=== PATIENT | male | born 1935 | race Caucasian/White ===

== ENCOUNTER 2017-03-23 20:06 | Inpatient (IN) ==
[2017-03-23] MEDS ORDERED: D50W SYRINGE IV ONE (20:18)
[2017-03-23] MEDS ORDERED: NS 1,000 ML IV ONE (20:19)
[2017-03-23 20:26] LABS: MANUAL DIFF NEEDED? NO
[2017-03-23 20:35] LABS: BASO% 0.1 % (0.0-0.8); EOS# 0.05 X1000 (0.0-0.7); EOS% 0.6 % (0.0-10.0); HEMATOCRIT 39.5 % (42.0-52.0); HEMOGLOBIN 13.2 g/dL (14.0-18.0); IMM GRAN# 0.02 X1000 (0.0-0.04); IMM GRAN% 0.2 % (0.0-0.5); LYMPH# 0.76 X1000 (1.2-3.4); LYMPH% 9.4 % (20.5-51.1); MCH 29.2 PG (27-31); MCHC 33.4 g/dL (33-37); MCV 87.4 FL (81-99); MONO# 0.94 X1000 (0.11-0.59); MONO% 11.6 % (1.7-9.3); MPV 10.8 FL (7.4-10.4); NEUT% 78.1 % (42.2-75.2); PLT 139 X1000 (130-400); RBC 4.52 XMIL (4.7-6.1)
--- NOTE | 2017-03-23 20:35 | PROVIDER DOCUMENTATION ---
HPI-General Adult - General Chief Complaint: Return/Recheck Stated Complaint: return Time Seen by Provider: 03/23/17 20:18 Source: patient Allergies/Adverse Reactions: Patient Allergies Allergy/AdvReac Type Severity Reaction Status Date / Time Penicillins Allergy ANAPHYLAXIS Verified 03/23/17 09:11 aspirin AdvReac NAUSEA Verified 03/23/17 09:11 Home Medications: Home Medication List Medication Instructions Recorded Confirmed Last Taken Type Furosemide [Lasix] 40 mg PO DAILY 06/22/15 03/09/16 03/08/16 History Glipizide [Glipizide ER] 15 mg PO BID 06/22/15 03/09/16 03/08/16 History Lorazepam [Ativan] 1 mg PO BID PRN 06/22/15 03/09/16 03/07/16 History Omeprazole 40 mg DAILY 06/22/15 03/09/16 03/08/16 History Potassium Chloride E.r. [Klor-Con] 10 meq DAILY 06/22/15 03/09/16 03/08/16 History Digoxin 250 mcg PO DAILY 12/20/15 03/09/16 03/08/16 History Trazodone [Desyrel] 225 mg PO QHS 12/20/15 03/09/16 03/08/16 History SIMVAstatin [Zocor] 40 mg PO QHS 03/08/16 03/09/16 03/08/16 History - History of Present Illness -Gen Adult Nature of Presenting Problems: Pt. is 81 yom that presents with c/o AMS with low blood sugar by EMS. Pt. was seen earlier today for the same and was discharged home. Pt. reports he takes glipizide for his DM type II and no other DM medications. Location of Pain/Injury: reports: none. denies: head, face, mouth, neck, chest , upper extremity, hand(s), abdomen, back, pelvis, genitalia, lower extremity, feet, upper body, lower body, generalized, other Pain Radiation: reports: no radiation. denies: arm(s), back, buttocks, chest, epigastric, feet, groin, jaw, flank (L), legs (lower), LLQ, LUQ, neck, periumbilical, flank (R), RLQ, RUQ, shoulder(s), scapula, scrotal, sternal notch , suprapubic, legs (upper), urethral, vaginal, other Quality of Pain: reports: none. denies: aching, burning, cramping, dull, fullness, indigestion, pressure, sharp, stabbing, tearing, throbbing, tightness Severity: denies: mild, moderate, severe Onset/Duration: reports: unsure Timing: reports: still present. denies: improving, gone now, resolved prior to arrival, intermittent, constant, changing over time, getting worse Context/Activities at Onset: reports: none. denies: recent emotional stress, recent physical stress, recent trauma history, possible bad food, cold exposure , out of country travel Modifying Factors: improves with: nothing Associated Symptoms: reports: other (AMS). denies: denies symptoms, anxiety, arm pain, back/neck pain, chest pain, constipation, cough, diaphoresis, diarrhea , dizziness, EENT symptoms, fatigue, fever/chills, genitourinary problems, headaches, heartburn, joint pain, loss of appetite, malaise, muscle aches, sinus congestion/drainage, nausea, rash, seizure, shortness of breath, sensory/ motor loss, pain with inspiration, swelling/mass in abdomen, syncope, vomiting, weakness, trouble walking Similar Symptoms Previously?: Yes Recently seen or treated by another doctor?: Yes Review of Systems - Adult - REVIEW OF SYSTEMS - ADULT Constitutional: reports: see HPI. denies: chills, fever, fatique Eyes: reports: see HPI. denies: blurred vision, double vision Ears, Nose, Mouth & Throat: reports: see HPI. denies: ear pain, sinus problem, mouth/dental pain, throat swelling Cardiovascular: reports: see HPI. denies: chest pain, orthopnea, palpitations, syncope Respiratory: reports: see HPI. denies: cough, dyspnea on exertion, pleurisy, shortness of breath, wheezing Gastrointestinal: reports: see HPI. denies: abdominal pain, hematemesis, diarrhea, nausea, vomiting Genitourinary: reports: see HPI. denies: dysuria, discharge, hematuria, hesitency, urgency Musculoskeletal: reports: see HPI. denies: bone pain, joint pain, muscle aches , neck pain Integumentary: reports: see HPI. denies: hives, itching, rash, skin thickening Neurological: reports: see HPI, other (AMS). denies: ataxia, headache/migraines , numbness, seizure, tremors Psychiatric: reports: see HPI. denies: anxiety, depression, emotional problems , insomnia, panic attacks, suicidal thoughts Endocrine: reports: see HPI. denies: excessive sweating, goiter, increased hunger, polyuria Past History - Adult - PAST MEDICAL HISTORY-ADULT Review of Records: reports: Old Records Reviewed, Nursing Assessment Review, Medications Reviewed, Social history reviewed & non-contributory. Major Childhood Illnesses: reports: denies history Cardiovascular: reports: cardiac disease, A-Fib, arrhythmia Respiratory: reports: denies history Gastrointestinal: reports: cancer (esophageal) Endocrine/Immune: reports: Diabetes - PRIOR SURGERIES/PROCEDURES Surgical/Procedure History: reports: appendectomy, CABG, pacemaker, tonsillectomy, other (thorocotomy) - IMMUNIZATION STATUS Childhood Immunizations: See Nurse Assessment Flu Vaccine: See Nurse Assessment - FAMILY HISTORY Family History: reviewed, not pertinent - SOCIAL HISTORY Smoking: cigarettes, greater than 1 pack/day Provider spent 3-5 mins advising pt. on dangers of tobacco.: Discussed the need to stop smoking. Physical Exam-General - PHYSICAL EXAM-ADULT Initial Vital Signs Reviewed: Yes - CONSTITUTIONAL General Appearance: alert, mild distress, thin, lethargic, slow to respond. negative: obese, anxious, obtunded, combative - EYES Eyes: PERRL/EOMI, pink conjunctivae. negative: conjuctival exudate, scleral icterus, subconjunctival hemorrhage - HEAD, EARS, NOSE, MOUTH & THROAT HENMT: normocephalic/atraumatic, moist mucous membranes. negative: angioedema, frontal tenderness, maxillary tenderness - NECK Neck: non-tender, full range of motion, supple, normal inspection. negative: lymphadenopathy, trachial deviation, thyromegaly - RESPIRATORY Respiratory: lungs clear, normal breath sounds. negative: crackles, rales, rhonchi, stridor, wheezing - CARDIOVASCULAR Cardiovascular: normal peripheral pulses, regular rate, rhythm, no edema, no JVD , no murmur. negative: extra beats, friction rub, irregularly irregular - GASTROINTESTINAL (ABDOMEN) Abdominal Exam: normal bowel sounds, non tender, soft. negative: distended, guarding, rigid, rebound, tenderness, hernia, mass - LYMPHATIC Lymphatic: no adenopathy. negative: axilla node tender, cervical node tenderness - MUSCULOSKELETAL Back Exam: normal inspection, no CVA tenderness, no vertebral tenderness. negative: ecchymosis, swelling, vertebral tenderness Extremity: normal range of motion, non-tender, normal inspection. negative: deformity, erythema, inflammation, swelling, tenderness Peripheral Pulses: radial (R): 2+, radial (L): 2+ - SKIN Integumentary: normal turgor, warm/dry, pallor. negative: cyanosis, diaphoresis , ecchymosis, erythema, jaundice, mottled, petechiae, purpura, rash, swelling, tenderness - NEUROLOGIC Neurologic: grossly normal, no motor/sensory deficits. negative: aphasia, facial droop, focal weakness, motor weakness, sensory deficit - PSYCHIATRIC Psych/Mental Status: normal mood/affect, normal thought content, normal thought process, oriented x 3. negative: anxious, paranoid, tearful Progress - PLAN OF CARE/RESULTS Progress/Plan/Lab Results: Vital Signs - 8 hr 03/23/17 20:08 Temperature 98 F Pulse Rate 88 Respiratory Rate 18 Blood Pressure 148/78 O2 Sat by Pulse Oximetry 98 Orders Category Date Time Status Saline Loc NOW Care 03/23/17 20:18 Active CBC WITH ELECTRONIC DIFF [HEME] Stat Lab 03/23/17 20:15 Results COMPREHENSIVE METABOLIC PANEL [CHEM] Stat Lab 03/23/17 20:[address] [URINALYSIS] Stat Lab 03/23/17 20:19 Ordered 0.9% Sodium Chloride Inj [Ns] 1,000 ml Med 03/23/17 20:19 Active IV 125 mls/hr Dextrose 50% Syringe [D50w Syringe] Med 03/23/17 20:18 Discontinued 50 ml IV NOW ONE Discussed results and plan of care with patient. Patient agrees with plan and verbalizes understanding. Result Diagrams: 03/23/17 20:15 - XRAY 1 XRAY Study: Chest XRAY Interpretation: Stable chest ([place]) - CONSULTS/PCP/HOSPITALIST Notification #1 *Consult/PCP/Hospitalist*: Dr. Joseph Time Discussed: 20:30 Reason/Comments: Admission Consult Disposition: Admit Departure - Departure Date of Disposition Decision: 03/23/17 Time of Disposition Decision: 20:31 DIAGNOSIS: Hypoglycemia Disposition: ADMITTED INPATIENT 09 Certified Medical Emergency: Emergent Condition: Stable - Critical Care Note This patient required my direct & personal management of CC.: No Attestation - Physician/ JUDIT Attestation Patient care was provided by Advanced Practice Provider:: Yes Advanced Practice Provider:: Conrado [place] (The physician is on site and available for consultation but did not have face to face contact with the patient.) Advanced Practice Provider documentation review:: The Mid-level provider documentation, treatment plan and medical decision making was reviewed by the physician who agrees with all treatment and medical decision making by the MLP.
[2017-03-23] MEDS ORDERED: D50W SYRINGE IV PRN (20:38)
[2017-03-23 20:52] LABS: AGAP 10; ALBUMIN 3.6 g/dL (3.5-5.0); ALKALINE PHOSPHATASE 42 U/L (32-122); BUN 30 mg/dL (8-22); CHLORIDE 106 mmol/L (98-107); COSMO 284; GOT 63 U/L (10-34); GPT 20 U/L (10-44); POTASSIUM 3.2 mmol/L (3.5-5.1); SODIUM 141 mmol/L (136-145); TCO2 25 mmol/L (25-35); TOTAL PROTEIN 6.4 g/dL (6.3-8.3)
[2017-03-24 08:52] LABS: AGAP 7; BUN 28 mg/dL (8-22); CALCIUM 8.7 mg/dL (8.8-10.2); CHLORIDE 108 mmol/L (98-107); COSMO 296; POTASSIUM 3.6 mmol/L (3.5-5.1); SODIUM 143 mmol/L (136-145); TCO2 28 mmol/L (25-35)
[2017-03-24] MEDS ORDERED: ATIVAN PO PRN (09:52)
[2017-03-24] MEDS ORDERED: NORCO-10 PO PRN (09:52)
[2017-03-24 10:15] LABS: HEMOGLOBIN A1C 5.6 % (4.8-6.0)
[2017-03-24] MEDS: LIORESAL PO SCH (12:22)
[2017-03-24] MEDS: REGLAN PO SCH (12:22)
[2017-03-24] MEDS: MIRALAX PO SCH (12:22)
[2017-03-24] MEDS: LASIX PO SCH (12:22)
[2017-03-24] MEDS: KLOR-CON PO SCH (12:22)
[2017-03-24] MEDS: PRILOSEC PO SCH (13:53)
--- NOTE | 2017-03-24 14:07 | HISTORY AND PHYSICAL ---
PRIMARY CARE PHYSICIAN: Dr. Beckham. CHIEF COMPLAINT: Of hypoglycemia and altered mental status. HISTORY OF PRESENTING ILLNESS: This is an 81-year-old male who presents to [facility] ER with complaints of hypoglycemia and altered mental status. He was seen earlier on 03/23/2017 in the emergency room for the same symptoms. He was treated with D5W and an amp of D50. His blood sugar came up. He was instructed not to take any more of his glipizide and he was discharged home at that time. States that he had gone home and was feeling better and all of a sudden he fell to his knee and he asked his son to dial 911 and he was brought back to the emergency room. When he arrived his laboratory data showed a glucose of 45 and a potassium of 3.2. He was given an amp of D50 IV and his blood sugar came up to 161 approximately 30 minutes later. He had some mild confusion related to the hypoglycemia so he was admitted for further evaluation and treatment. PAST MEDICAL HISTORY: Diabetes type 2, coronary artery disease, hypertension and atrial fibrillation. PAST SURGICAL HISTORY: CABG, tonsillectomy, pacemaker placement and a thoracotomy. FAMILY HISTORY: Noncontributory. SOCIAL HISTORY: He currently lives alone. Smokes 5-6 cigarettes a day and denied any alcohol or illicit drug use. ALLERGIES: Penicillin and aspirin. HOME MEDICATIONS: We will hold his glipizide 15 mg p.o. b.i.d. Will continue baclofen 10 mg p.o. daily, Lasix 40 mg p.o. daily, Hodge 10 1 p.o. q.4 hours p.r.n., Ativan 1 mg p.o. b.i.d. p.r.n., Reglan 5 mg p.o. daily, omeprazole 40 mg p.o. daily, MiraLAX 17 g p.o. daily, potassium 10 mEq p.o. daily and Zocor 40 mg p.o. at bedtime. LABORATORY DATA: Showed a white blood cell count of 8.08, hemoglobin of 13.2, hematocrit 39.5, platelets 139,000. Sodium 141, potassium 3.2, chloride 106, CO2 25, BUN of 30, creatinine of 0.9, glucose was 45. This a.m. his potassium was up to 3.6, glucose was at 192. CT of the head during his presentation to the ER showed no hemorrhage and atrophy with chronic ischemic changes and a chest x-ray earlier yesterday morning during that presentation also that showed a stable chest. REVIEW OF SYSTEMS: He denied any fever, chills, blurred vision. He had a little dizziness. Denied any chest pain, coughing, shortness of breath, abdominal pain, constipation, diarrhea, burning or hurting with urination. PHYSICAL EXAMINATION: VITAL SIGNS: On arrival showed a temperature of 98 degrees, pulse of 88, respirations 18, blood pressure 148/78, saturating 98% on room air. GENERAL: This is an 81-year-old male who is currently lying in the bed and answers questions appropriately. HEENT: Normocephalic and atraumatic. Pupils are equal, round, reactive to light. The extraocular movements are intact. Oropharynx and nares are clear. NECK: Supple. LUNGS: Clear to auscultation bilaterally with equal lung expansion and chest wall movement. HEART: With regular rate and rhythm. No murmurs, rubs, or gallops. ABDOMEN: Soft, nontender, nondistended. Bowel sounds are present x4 quadrants. EXTREMITIES: No clubbing, cyanosis, or edema. NEUROLOGICAL: The cranial nerves 2-12 are grossly intact. ASSESSMENT: 1. Diabetes type 2 with hypoglycemia secondary to hypoglycemic agent. 2. Hypokalemia. 3. Hypertension. 4. Tobacco abuse. PLAN: He was admitted, placed on a diabetic diet. Pattern blood sugars. He was given normal saline at 125 mL an hour x1 L, D50 IV p.r.n. hypoglycemia. We are going to hold his glipizide, continue his home medications, going to check a hemoglobin A1c. Did discuss smoking cessation with this patient and he is currently a full code. Dictated by KOSTA Mazariegos for Tavo Dominguez MD cc: MD Tavo Driscoll MD
[2017-03-24] MEDS ORDERED: ZOCOR PO SCH (21:00)
[2017-03-25] MEDS: PRILOSEC PO SCH (06:03)
[2017-03-25 06:50] LABS: MANUAL DIFF NEEDED? NO
[2017-03-25 06:56] LABS: BASO% 0.1 % (0.0-0.8); EOS# 0.19 X1000 (0.0-0.7); EOS% 2.8 % (0.0-10.0); HEMATOCRIT 39.9 % (42.0-52.0); HEMOGLOBIN 12.9 g/dL (14.0-18.0); IMM GRAN# 0.01 X1000 (0.0-0.04); IMM GRAN% 0.1 % (0.0-0.5); LYMPH# 1.04 X1000 (1.2-3.4); LYMPH% 15.3 % (20.5-51.1); MCH 28.6 PG (27-31); MCHC 32.3 g/dL (33-37); MCV 88.5 FL (81-99); MONO% 11.7 % (1.7-9.3); PLT 133 X1000 (130-400); RBC 4.51 XMIL (4.7-6.1)
[2017-03-25 07:57] LABS: AGAP 9; BUN 21 mg/dL (8-22); CALCIUM 9.1 mg/dL (8.8-10.2); CHLORIDE 102 mmol/L (98-107); COSMO 283; POTASSIUM 3.6 mmol/L (3.5-5.1); SODIUM 138 mmol/L (136-145); TCO2 27 mmol/L (25-35)
[2017-03-25] MEDS: LIORESAL PO SCH (10:11)
[2017-03-25] MEDS: REGLAN PO SCH (10:11)
[2017-03-25] MEDS: LASIX PO SCH (10:11)
[2017-03-25] MEDS: MIRALAX PO SCH (10:11)
[2017-03-25] MEDS: KLOR-CON PO SCH (10:11)
[2017-03-25 15:12] VITALS: BP 130/82
--- NOTE | 2017-03-29 18:37 | DISCHARGE SUMMARY ---
ADMISSION DATE: 03/23/2017 DISCHARGE DATE: 03/25/2017 DISCHARGE DIAGNOSES: 1. Hyperglycemia, iatrogenic secondary to hypoglycemic agent. 2. Diabetes type 2. 3. Hypokalemia. 4. Hypertension. 5. Chronic tobacco abuse. CONSULTATION/PROCEDURE: None. BRIEF HOSPITAL COURSE: Patient is an 81-year-old male who presented to the emergency department as noted on HPI. Treated in usual fashion. Given IV glucose and D50 a few times. His glipizide was held. His blood sugars continued to improve. On discharge, patient had not taken his glipizide, but he was feeling much better. He was eating without any difficulty. He was asking to go home. DISPOSITION: The patient will be discharged home. Again, discussed to not take glipizide for the next several days at home and if he does start taking it, only take half the dose. He will follow up with his primary care in 1-2 weeks to recheck his blood sugar. He will check his blood sugars on a daily basis until that time. TIME SPENT: 35 minutes was spent in discharge planning and instructions. cc: Donald Stewart MD
== END 2017-03-25 16:44 | disposition home or self-care (01) ==
LOC: P.ED 20:06 → P.MEDSURG 20:57 → SUATTDRO 20:57 → P.MEDSURG 21:11
PROVIDERS: ADMIT Family Medicine; ATTEND Family Medicine

== ENCOUNTER 2017-04-09 17:32 | Observation (INO) ==
[2017-04-09 17:58] LABS: BE 3.9 mmoll (-3.0-3.0); BLOOD TYPE ARTERIAL; DRAW SITE R BRACHIAL; METHB 1.3 % (0.0-1.5); O2(CT) 18.4 mL/dL (15.0-23.0); PCO2(98.6) 42 mmHg (35-45); PO2(98.6) 81 mmHg (60-100); SAMPLE BLOOD; SAO2 97.3 % (95.0-100.0); THB 13.9 g/dL (11.5-17.4); pH(98.6) 7.44 (7.35-7.45)
[2017-04-09 18:03] LABS: ALLEN TEST NO; MODALITY ROOM AIR
--- NOTE | 2017-04-09 18:12 | EKG Report ---
Test Performed on : 04/09/2017 6:09:14 PM Test Reason : AMS Blood Pressure : / mmHG Vent. Rate : 086 BPM Atrial Rate : 153 BPM P-R Int : 000 ms QRS Dur : 090 ms QT Int : 378 ms P-R-T Axes : 000 061 -67 degrees QTc Int : 452 ms Atrial fibrillation. with premature ventricular or aberrantly conducted complexes. Voltage criteria for left ventricular hypertrophy Nonspecific ST and T wave abnormality Abnormal ECG When compared with ECG of 23-MAR-2017 09:07, Inverted T waves have replaced nonspecific T wave abnormality in Inferior leads Unconfirmed Result
[2017-04-09 18:14] LABS: MANUAL DIFF NEEDED? NO
[2017-04-09 18:17] LABS: BASO% 0.3 % (0.0-0.8); EOS# 0.15 X1000 (0.0-0.7); EOS% 2.4 % (0.0-10.0); HEMATOCRIT 40.1 % (42.0-52.0); HEMOGLOBIN 13.3 g/dL (14.0-18.0); IMM GRAN# 0.02 X1000 (0.0-0.04); IMM GRAN% 0.3 % (0.0-0.5); LYMPH# 1.55 X1000 (1.2-3.4); LYMPH% 24.8 % (20.5-51.1); MCHC 33.2 g/dL (33-37); MCV 87.6 FL (81-99); MONO# 0.73 X1000 (0.11-0.59); MONO% 11.7 % (1.7-9.3); MPV 10.5 FL (7.4-10.4); NEUT% 60.5 % (42.2-75.2); PLT 181 X1000 (130-400); RBC 4.58 XMIL (4.7-6.1)
--- NOTE | 2017-04-09 18:32 | Diag Imaging Result Doc PS360 ---
EXAM: HEAD W/O CONTRAST - 04/09/2017 HISTORY: AMS TECHNIQUE: Dose reduction protocol COMPARISON: 03/23/2017 FINDINGS: There are atrophic changes and mild chronic microvascular ischemic changes similar to the previous exam. There is no indication of recent infarct, although acute infarcts may not be immediately visible. There is no hemorrhage, mass effect, or midline shift identified. IMPRESSION: No visible acute process. No hemorrhage or mass effect. Electronically signed by Mathieu Aldana 04/09/2017 6:30 PM
[2017-04-09 18:34] LABS: INR 1.18 (0.86-1.15); PROTIME 15.3 Seconds (12.1-15.5)
[2017-04-09 18:35] LABS: PTT PL 35.3 Seconds (22.6-43.9)
--- NOTE | 2017-04-09 18:36 | Diag Imaging Result Doc PS360 ---
EXAM: CHEST-PORTABLE - 04/09/2017 HISTORY: AMS TECHNIQUE: Portable chest 6:33 PM COMPARISON: 03/23/2017 FINDINGS: There is stable mild cardiomegaly. There are sternal wires from previous surgery again seen. There are multiple surgical clips from esophagectomy with gastric pull-through procedure. The lungs appear essentially clear. There is no pleural effusion or pneumothorax identified. There are degenerative and apparent postsurgical changes noted at the right shoulder. IMPRESSION: Stable mild cardiomegaly. No evidence of acute disease. Electronically signed by Mtahieu Aldana 04/09/2017 6:34 PM
[2017-04-09 18:39] LABS: ALBUMIN 3.8 g/dL (3.5-5.0); CALCIUM 9.7 mg/dL (8.8-10.2); POTASSIUM 4.4 mmol/L (3.5-5.1); TOTAL BILIRUBIN 0.7 mg/dL (0.20-1.00)
[2017-04-09 18:51] LABS: URINE CULTURE PL NEEDED? NO
[2017-04-09] MEDS ORDERED: NS 1,000 ML IV PRN (18:55)
[2017-04-09 19:02] LABS: BILIRUBIN URINE NEGATIVE (NEGATIVE); BLOOD URINE NEGATIVE (NEGATIVE); CLARITY CLEAR (CLEAR); COLOR YELLOW; GLUCOSE URINE NEGATIVE (NEGATIVE); LEUKOCYTES URINE NEGATIVE (NEGATIVE); NITRITE URINE NEGATIVE (NEGATIVE); PROTEIN URINE NEGATIVE (NEGATIVE); SP GRAVITY URINE 1.005; UROBILINOGEN URINE NORMAL
[2017-04-09 19:04] LABS: UR AMPHETAMINES QUAL NONE DETECTED (NONE DETECT); UR BARBITUATES QUAL NONE DETECTED (NONE DETECT); UR BENZODIAZEPIN QUAL NONE DETECTED (NONE DETECT); UR CANNABINOIDS QUAL NONE DETECTED (NONE DETECT); UR COCAINE QUAL NONE DETECTED (NONE DETECT); UR MDMA QUAL NONE DETECTED (NONE DETECT); UR METHADONE QUAL NONE DETECTED (NONE DETECT); UR METHAMPHETAMINE QUAL NONE DETECTED (NONE DETECT); UR OPIATES QUAL PRESUMPTIVE POSITIVE (NONE DETECT); UR OXYCODONE QUAL NONE DETECTED (NONE DETECT); UR PCP QUAL NONE DETECTED (NONE DETECT); UR TCA QUAL NONE DETECTED (NONE DETECT)
[2017-04-09 19:12] LABS: URINE SOURCE CLEAN CATCH
[2017-04-09 19:13] LABS: URINE EPITHELIAL CELLS <10 /HPF (<10); URINE RBC <10 /HPF (<10); URINE WBC <10 /HPF (<10)
[2017-04-09] MEDS ORDERED: TYLENOL PO PRN (20:43)
[2017-04-09] MEDS ORDERED: NS 1,000 ML IV ONE (20:43)
[2017-04-09] MEDS ORDERED: ZOFRAN IV PRN (20:43)
--- NOTE | 2017-04-09 20:48 | PROVIDER DOCUMENTATION ---
This chart was entered by Reshma Yeh Scribe, acting as scribe for Mike Espana MD. HPI-Neurological Disorder - General Chief Complaint: Altered Mental Status Stated Complaint: AMS Time Seen by Provider: 04/09/17 18:57 Source: patient, RN notes reviewed Unable to obtain history due to:: altered Allergies/Adverse Reactions: Patient Allergies Allergy/AdvReac Type Severity Reaction Status Date / Time Penicillins Allergy ANAPHYLAXIS Verified 04/09/17 17:35 aspirin AdvReac NAUSEA Verified 04/09/17 17:35 Home Medications: Home Medication List Medication Instructions Recorded Confirmed Last Taken Type Furosemide [Lasix] 40 mg PO DAILY 06/22/15 04/09/17 03/08/16 History Lorazepam [Ativan] 1 mg PO BID PRN 06/22/15 04/09/17 03/07/16 History Omeprazole 40 mg PO DAILY 06/22/15 04/09/17 03/08/16 History Potassium Chloride E.r. [Klor-Con] 10 meq DAILY 06/22/15 04/09/17 03/08/16 History SIMVAstatin [Zocor] 40 mg PO QHS 03/08/16 04/09/17 03/08/16 History Baclofen 10 mg PO DAILY 03/23/17 04/09/17 Unknown History Hydrocodone/Acetaminophen [[place] 10 mg PO Q4H PRN PRN 03/23/17 04/09/17 Unknown History 10-325 Tablet] Metoclopramide HCl [Reglan] 5 mg PO DIRECTED 03/23/17 04/09/17 Unknown History Polyethylene Glycol 3350 17 gm PO DAILY 03/23/17 04/09/17 Unknown History Glipizide 15 mg PO BID 04/09/17 04/09/17 Unknown History Isosorbide Mononitrate E.r. [Imdur] 60 mg PO DAILY 04/09/17 04/09/17 Unknown History Lisinopril 5 mg PO DAILY 04/09/17 04/09/17 Unknown History Ondansetron Odt [Zofran Odt] 4 mg PO Q6H PRN 04/09/17 04/09/17 Unknown History Quetiapine [Seroquel] 25 mg PO QHS 04/09/17 04/09/17 Unknown History Sucralfate 1 gm PO 4XDAY 04/09/17 04/09/17 Unknown History Trazodone [Desyrel] 225 mg PO QHS 04/09/17 04/09/17 Unknown History Warfarin [Coumadin] 3 mg PO DAILY 04/09/17 04/09/17 Unknown History - History of Present Illness-Neuro Nature of Presenting Problem: 81 year old M presents to the ED with a cc of a fall. Per nursing note, son states that pt is more altered mentally than usual. Pt is a cancer pt and is on hospice. There is a contusion to left side of forehead and per nursing note pt son states that it may have happened last night. Severity: reports: moderate Onset/Duration: reports: this afternoon Timing: reports: still present Context: reports: other (more altered) Character of Altered Mental Status: reports: confused Any recent trauma/injury?: reports: other (unknown) Cognitive Baseline: alert but confused Gait Baseline: other (unknown) Review of Systems - Adult - REVIEW OF SYSTEMS - ADULT ROS:: unobtainable per condition (pt confused) Constitutional: reports: no symptoms reported Eyes: reports: no symptoms reported Ears, Nose, Mouth & Throat: reports: no symptoms reported Cardiovascular: reports: no symptoms reported Respiratory: reports: no symptoms reported Gastrointestinal: reports: no symptoms reported Genitourinary: reports: no symptoms reported Musculoskeletal: reports: no symptoms reported Integumentary: reports: no symptoms reported Neurological: reports: no symptoms reported Psychiatric: reports: no symptoms reported Endocrine: reports: no symptoms reported Hematologic/Lymphatic: reports: no symptoms reported Allergic/Immunologic: reports: no symptoms reported All Other Systems: Reviewed and Negative Past History - Adult - PAST MEDICAL HISTORY-ADULT Review of Records: reports: Nursing Assessment Review, Medications Reviewed Major Childhood Illnesses: reports: denies history Cardiovascular: reports: cardiac disease, A-Fib, arrhythmia Respiratory: reports: denies history Gastrointestinal: reports: cancer (esophageal) Endocrine/Immune: reports: Diabetes - PRIOR SURGERIES/PROCEDURES Surgical/Procedure History: reports: appendectomy, CABG, pacemaker, tonsillectomy, other (thorocotomy) - IMMUNIZATION STATUS Childhood Immunizations: See Nurse Assessment Flu Vaccine: See Nurse Assessment - FAMILY HISTORY Family History: reviewed, not pertinent - SOCIAL HISTORY Smoking: cigarettes Provider spent 3-5 mins advising pt. on dangers of tobacco.: Discussed manners to quit use, and f/u contacts for add'l counseling. Substance Use: none/never Alcohol Use Frequency: occasionally Physical Exam- Neurological - Physical Exam-Neuro Initial Vital Signs Reviewed: Yes General Appearance: alert, other (emaciated) Head Injury: contusions (left forehead), ecchymosis (left forehead) Respiratory: chest non-tender, lungs clear, normal breath sounds Cardiovascular: irregularly irregular Abdominal Exam: non tender, soft Integumentary: normal color, normal turgor, warm/dry Progress - PLAN OF CARE/RESULTS Progress/Plan/Lab Results: Vital Signs - 8 hr 04/09/17 17:32 04/09/17 19:08 Pulse Rate 79 133 H Respiratory Rate 19 18 Blood Pressure 119/74 157/92 O2 Sat by Pulse Oximetry 97 94 L Laboratory Results - last 24 hr 04/09/17 04/09/17 04/09/17 16:10 16:10 16:10 WBC RBC Hgb Hct MCV MCH MCHC RDW Std Deviation Plt Count MPV Immature Gran % (Auto) Neut % (Auto) Lymph % (Auto) [place] % (Auto) Eos % (Auto) Baso % (Auto) Immature Gran # (Auto) Neut # (Auto) Lymph # (Auto) [place] # (Auto) Eos # (Auto) Baso # (Auto) PT INR APTT (Factor Assay) Specimen Type Sample Site pH pCO2 pO2 HCO3 Base Excess Oxyhemoglobin ABG O2 Sat (Calculated) ABG O2 Saturation ABG Carboxyhemoglobin ABG Methemoglobin Saw Test A-a O2 Difference Total Hemoglobin Lactate Blood Gas Modality FiO2 % Sodium 135 L Potassium 4.4 Chloride 96 L Carbon Dioxide 29 Anion Gap 10 BUN 36 H Creatinine 1.4 H Estimated GFR/1.73 m2 49 BUN/Creatinine Ratio 26 Glucose 100 POC Glucose Calculated Osmolality 279 Calcium 9.7 Total Bilirubin 0.70 AST 18 ALT 10 Alkaline Phosphatase 64 Creatine Kinase 57 Troponin T 0.023 [id number] Pept Total Protein 7.0 Albumin 3.8 Globulin 3.0 Albumin/Globulin Ratio 1.0 Plasma Lactate 0.8 Urine Source Urine Color Urine Clarity Urine pH Ur Specific [place] Urine Protein Urine Ketones Urine Blood Urine Nitrite Urine Bilirubin Urine Urobilinogen Urine Microscopic RBC Urine WBC Urine Microscopic WBC Ur Epithelial Cells Urine Bacteria Urine Glucose Urine Opiates Screen Ur Oxycodone Screen Urine Methadone Screen Ur Barbituates Screen Ur Tricyclics Screen Ur Phencyclidine Scrn Ur Amphetamines Screen U Methamphetamines Scrn Urine MDMA Screen U Benzodiazepines Scrn Urine Cocaine Screen U Cannabinoids Screen Plasma/Serum Ethyl Alc 04/09/17 04/09/17 04/09/17 16:10 16:10 16:10 WBC 6.24 RBC 4.58 L Hgb 13.3 L Hct 40.1 L MCV 87.6 MCH 29.0 MCHC 33.2 RDW Std Deviation 14.6 H Plt Count 181 MPV 10.5 H Immature Gran % (Auto) 0.3 Neut % (Auto) 60.5 Lymph % (Auto) 24.8 [place] % (Auto) 11.7 H Eos % (Auto) 2.4 Baso % (Auto) 0.3 Immature Gran # (Auto) 0.02 Neut # (Auto) 3.77 Lymph # (Auto) 1.55 [place] # (Auto) 0.73 H Eos # (Auto) 0.15 Baso # (Auto) 0.02 PT 15.3 INR 1.18 H APTT (Factor Assay) 35.3 Specimen Type Sample Site pH pCO2 pO2 HCO3 Base Excess Oxyhemoglobin ABG O2 Sat (Calculated) ABG O2 Saturation ABG Carboxyhemoglobin ABG Methemoglobin Saw Test A-a O2 Difference Total Hemoglobin Lactate Blood Gas Modality FiO2 % Sodium Potassium Chloride Carbon Dioxide Anion Gap BUN Creatinine Estimated GFR/1.73 m2 BUN/Creatinine Ratio Glucose POC Glucose Calculated Osmolality Calcium Total Bilirubin AST ALT Alkaline Phosphatase Creatine Kinase Troponin T [id number] Pept Total Protein Albumin Globulin Albumin/Globulin Ratio Plasma Lactate Urine Source Urine Color Urine Clarity Urine pH Ur Specific [place] Urine Protein Urine Ketones Urine Blood Urine Nitrite Urine Bilirubin Urine Urobilinogen Urine Microscopic RBC Urine WBC Urine Microscopic WBC Ur Epithelial Cells Urine Bacteria Urine Glucose Urine Opiates Screen Ur Oxycodone Screen Urine Methadone Screen Ur Barbituates Screen Ur Tricyclics Screen Ur Phencyclidine Scrn Ur Amphetamines Screen U Methamphetamines Scrn Urine MDMA Screen U Benzodiazepines Scrn Urine Cocaine Screen U Cannabinoids Screen Plasma/Serum Ethyl Alc 04/09/17 04/09/17 04/09/17 16:10 17:30 18:34 WBC RBC Hgb Hct MCV MCH MCHC RDW Std Deviation Plt Count MPV Immature Gran % (Auto) Neut % (Auto) Lymph % (Auto) [place] % (Auto) Eos % (Auto) Baso % (Auto) Immature Gran # (Auto) Neut # (Auto) Lymph # (Auto) [place] # (Auto) Eos # (Auto) Baso # (Auto) PT INR APTT (Factor Assay) Specimen Type ARTERIAL Sample Site R BRACHIAL pH 7.44 pCO2 42 pO2 81 HCO3 27.9 H Base Excess 3.9 H Oxyhemoglobin 94.1 L ABG O2 Sat (Calculated) 18.4 ABG O2 Saturation 97.3 ABG Carboxyhemoglobin 2.00 ABG Methemoglobin 1.3 Saw Test NO A-a O2 Difference 16.0 Total Hemoglobin 13.9 Lactate 0.70 Blood Gas Modality ROOM AIR FiO2 % 21.0 Sodium Potassium Chloride Carbon Dioxide Anion Gap BUN Creatinine Estimated GFR/1.73 m2 BUN/Creatinine Ratio Glucose POC Glucose 96 D Calculated Osmolality Calcium Total Bilirubin AST ALT Alkaline Phosphatase Creatine Kinase Troponin T [id number]-Uytjtswblzw Pept 1415 H Total Protein Albumin Globulin Albumin/Globulin Ratio Plasma Lactate Urine Source Urine Color Urine Clarity Urine pH Ur Specific [place] Urine Protein Urine Ketones Urine Blood Urine Nitrite Urine Bilirubin Urine Urobilinogen Urine Microscopic RBC Urine WBC Urine Microscopic WBC Ur Epithelial Cells Urine Bacteria Urine Glucose Urine Opiates Screen Ur Oxycodone Screen Urine Methadone Screen Ur Barbituates Screen Ur Tricyclics Screen Ur Phencyclidine Scrn Ur Amphetamines Screen U Methamphetamines Scrn Urine MDMA Screen U Benzodiazepines Scrn Urine Cocaine Screen U Cannabinoids Screen Plasma/Serum Ethyl Alc 04/09/17 04/09/17 18:43 18:43 WBC RBC Hgb Hct MCV MCH MCHC RDW Std Deviation Plt Count MPV Immature Gran % (Auto) Neut % (Auto) Lymph % (Auto) [place] % (Auto) Eos % (Auto) Baso % (Auto) Immature Gran # (Auto) Neut # (Auto) Lymph # (Auto) [place] # (Auto) Eos # (Auto) Baso # (Auto) PT INR APTT (Factor Assay) Specimen Type Sample Site pH pCO2 pO2 HCO3 Base Excess Oxyhemoglobin ABG O2 Sat (Calculated) ABG O2 Saturation ABG Carboxyhemoglobin ABG Methemoglobin Saw Test A-a O2 Difference Total Hemoglobin Lactate Blood Gas Modality FiO2 % Sodium Potassium Chloride Carbon Dioxide Anion Gap BUN Creatinine Estimated GFR/1.73 m2 BUN/Creatinine Ratio Glucose POC Glucose Calculated Osmolality Calcium Total Bilirubin AST ALT Alkaline Phosphatase Creatine Kinase Troponin T Tea-C-Oddwmxxfhmc Pept Total Protein Albumin Globulin Albumin/Globulin Ratio Plasma Lactate Urine Source CLEAN CATCH Urine Color YELLOW Urine Clarity CLEAR Urine pH 7.0 Ur Specific [place] 1.005 Urine Protein NEGATIVE Urine Ketones TRACE Urine Blood NEGATIVE Urine Nitrite NEGATIVE Urine Bilirubin NEGATIVE Urine Urobilinogen NORMAL Urine Microscopic RBC <10 Urine WBC NEGATIVE Urine Microscopic WBC <10 Ur Epithelial Cells <10 Urine Bacteria NEGATIVE Urine Glucose NEGATIVE Urine Opiates Screen PRESUMPTIVE POSITIVE A Ur Oxycodone Screen NONE DETECTED Urine Methadone Screen NONE DETECTED Ur Barbituates Screen NONE DETECTED Ur Tricyclics Screen NONE DETECTED Ur Phencyclidine Scrn NONE DETECTED Ur Amphetamines Screen NONE DETECTED U Methamphetamines Scrn NONE DETECTED Urine MDMA Screen NONE DETECTED U Benzodiazepines Scrn NONE DETECTED Urine Cocaine Screen NONE DETECTED U Cannabinoids Screen NONE DETECTED Plasma/Serum Ethyl Alc Orders Category Date Time Status Admit - [facility] Routine AdmDCTranf 04/09/17 20:43 Ordered Activity - Strict Bedrest ORDERED Care 04/09/17 20:43 Active Cardiac Monitoring DIRECTED Care 04/09/17 17:46 Active Finger Stick Blood Sugar (ED) DIRECTED Care 04/09/17 17:46 Active Neurological Check q4h Care 04/09/17 20:43 Active Oxygen Therapy- ED Nursing DIRECTED Care 04/09/17 17:46 Active Saline Loc DIRECTED Care 04/09/17 20:43 Active Saline Loc NOW Care 04/09/17 17:46 Active Vital Signs Order ROUTINE Care 04/09/17 20:43 Active Regular Diet Diet 04/09/17 20:45 Active CHEST-PORTABLE [RAD] Stat Exams 04/09/17 17:46 Completed HEAD W/O CONTRAST [CT] Stat Exams 04/09/17 17:46 Completed ABG [RESP] Routine Lab 04/09/17 17:30 Completed ALCOHOL BLOOD Stat Lab 04/09/17 16:10 Completed BASIC METABOLIC PANEL [CHEM] Timed Lab 04/10/17 06:00 Ordered CBC WITH ELECTRONIC DIFF [HEME] Stat Lab 04/09/17 16:10 Completed CK PROFILE [SP CHEM] Stat Lab 04/09/17 16:10 Completed COMPREHENSIVE METABOLIC PANEL [CHEM] Stat Lab 04/09/17 16:10 Completed LACTATE, PLASMA [CHEM] Stat Lab 04/09/17 16:10 Completed PROTIME WITH INR PL [COAG] Stat Lab 04/09/17 16:[address] [COAG] Stat Lab 04/09/17 16:10 Completed TROPONIN T Stat Lab 04/09/17 16:[address] W/POSS RFLX CULT [URINALYSIS] Stat Lab 04/09/17 18:43 Com[address]INE DRUG SCREEN PL Stat Lab 04/09/17 18:43 Completed pro-bnp [PRO B-NATRIURETIC PEPTIDE] Stat Lab 04/09/17 16:10 Completed 0.9% Sodium Chloride Inj [Ns] 1,000 ml Med 04/09/17 18:55 Active IV 100 mls/hr 0.9% Sodium Chloride Inj [Ns] 1,000 ml Med 04/09/17 20:43 Active IV 80 mls/hr Acetaminophen [Tylenol] Med 04/09/17 20:43 Active 650 mg PO Q6H PRN PRN Ondansetron [Zofran] Med 04/09/17 20:43 Active 4 mg IV Q4H PRN PRN Oxygen Device Stat Oth 04/09/17 20:43 Active Pulse Oximetry Stat Oth 04/09/17 17:46 Active EKG [EKG] Stat Ther 04/09/17 17:46 Draft Transfer/Admit Order [TRANSFER] Routine Transfer 04/09/17 20:46 Ordered Result Diagrams: 04/09/17 16:10 04/09/17 16:10 - EKG 1 Time of EKG reading by physician:: 18:09 EKG Read and Signed by:: Mike Espana EKG Interpretation (*Must complete 3 of following elements*): Abnormal Rate: 86 Rhythm: A-fib rate controlled QRS: LVH ST Wave: normal - CT/MRI 1 CT Study: Head Impression: Normal ( FINDINGS: There are atrophic changes and mild chronic microvascular ischemic changes similar to the previous exam. There is no indication of recent infarct, although acute infarcts may not be immediately visible. There is no hemorrhage, mass effect, or midline shift identified. IMPRESSION: No visible acute process. No hemorrhage or mass effect.--Dr. Aldana(radiologist)) - CONSULTS/PCP/HOSPITALIST Notification #1 *Consult/PCP/Hospitalist*: Dr. Stewart(hospitalist) Time Discussed: 20:33 Consult Disposition: Admit Departure - Departure Date of Disposition Decision: 04/09/17 Time of Disposition Decision: 20:47 DIAGNOSIS: Renal failure (ARF), acute on chronic Qualifiers: Acute renal failure type: unspecified Chronic kidney disease stage: stage 1 Qualified Code(s): N17.9 - Acute kidney failure, unspecified; N18.1 - Chronic kidney disease, stage 1 Disposition: ADMITTED INPATIENT 09 Certified Medical Emergency: Emergent Condition: Fair Referrals and Follow-Ups: None,PCP [Primary Care Provider] - - Critical Care Note This patient required my direct & personal management of CC.: No This chart was documented by the indicated scribe, (Reshma Yeh Scribe) and accurately reflects the services I performed and decisions made by me, Mike Espana MD, as attested by the provider's signature.
[2017-04-10] MEDS: NORCO-10 PO PRN ×3 (00:04→20:02)
[2017-04-10] MEDS: ATIVAN PO SCH ×3 (00:04→21:32)
[2017-04-10] MEDS: SEROQUEL PO SCH ×2 (00:04→21:32)
[2017-04-10 06:04] LABS: CALCIUM 9.1 mg/dL (8.8-10.2); POTASSIUM 3.9 mmol/L (3.5-5.1)
[2017-04-10 07:18] LABS: BILIRUBIN URINE NEGATIVE (NEGATIVE); BLOOD URINE NEGATIVE (NEGATIVE); CLARITY CLEAR (CLEAR); COLOR YELLOW; GLUCOSE URINE NEGATIVE (NEGATIVE); NITRITE URINE NEGATIVE (NEGATIVE); PROTEIN URINE TRACE mg/dL (NEGATIVE); URINE CULTURE PL NEEDED? YES; URINE EPITHELIAL CELLS <10 /HPF (<10); URINE RBC <10 /HPF (<10); URINE SOURCE CLEAN CATCH; URINE WBC <10 /HPF (<10); UROBILINOGEN URINE NORMAL
[2017-04-10 07:19] LABS: LEUKOCYTES URINE TRACE (NEGATIVE)
--- NOTE | 2017-04-10 15:20 | HISTORY AND PHYSICAL ---
CHIEF COMPLAINT: Altered mental status. HISTORY OF PRESENT ILLNESS: This is an 81-year-old male with a history of esophageal cancer, diabetes mellitus, COPD and hypertension. He presented to the emergency room via EMS with altered mental status and a fall. Of note, the patient is on hospice for esophageal cancer. On arrival, he did have a contusion to the left side of his forehead. CT of the head revealed no visible acute processes. No hemorrhage or mass effect. The patient states that he blacked out and the next thing he knew he was in the ambulance. He does have a recent history of hypoglycemia. In the emergency room, he had a blood sugar of 100 to 140. He was afebrile. At the time of my interview, he is awake, he is alert, he is oriented. He is appropriate. He has no complaints. He is being admitted for further evaluation and treatment. PAST MEDICAL HISTORY: Esophageal cancer, currently on hospice care with COPD, diabetes type 2, hypertension. Atrial fibrillation, chronic. PAST SURGICAL HISTORY: Appendectomy. Thoracotomy. SOCIAL HISTORY: He smokes 10 cigarettes a day. Occasional alcohol use. He denies illicit drug use. ALLERGIES: Penicillin and aspirin. Penicillin causes anaphylaxis. Aspirin causes nausea. HOME MEDICATIONS: A list will be obtained. REVIEW OF SYSTEMS: A 14 point review of systems is discussed with patient with pertinent positives being blacking out, recent fall. He denied any chest pain, palpitations, shortness of breath, cough, fever, chills, nausea, vomiting, diarrhea, constipation, black or bloody vomitus, black or bloody stool, hematuria, dysuria, frequency, urgency. PHYSICAL EXAMINATION: GENERAL: This is an 81-year-old male who is sitting up in the bed, watching TV in no distress. VITAL SIGNS: Blood pressure is 113/79 with a heart rate of 72, respirations are 18, temperature is 97.4 degrees with oxygen saturations of 95-100% on 2 L nasal cannula. HEENT: Head is normocephalic, atraumatic. Pupils equal, round, react to light. EOMs are intact. Sclerae are anicteric. Mucous membranes are dry. NECK: Supple with trachea midline. CARDIOVASCULAR: Regular rate and rhythm. S1 and S2 appreciated. PULMONARY: Breath sounds are clear. No increased work of breathing noted. Chest does rise and fall symmetrically with respiration. GASTROINTESTINAL: Abdomen is soft, nontender, nondistended. Bowel sounds in all 4 quadrants. EXTREMITIES: No clubbing, cyanosis, or edema. Calves nontender. Pulses are palpable x4. NEUROLOGIC: He is awake, alert and oriented x3. DIAGNOSTICS: WBC is 6.2 with hemoglobin 13.3, hematocrit 40.1, and platelets of 181,000. Sodium is 135, potassium 4.4, BUN 36, creatinine 1.4 with a glucose of 100, range 100- 140. Urinalysis is essentially negative. CT of the head revealed no bleed, no mass effect, no acute processes. ASSESSMENT AND PLAN: 1. Altered mental status, resolved 2. Frequent falls most likely due to weakness secondary to dehydration, Failure to thrive, deconditioning. 3. Acute on chronic kidney disease, most likely secondary to dehydration, gentle hydration encourage po intake 4. Dehydration secondary to decreased p.o. intake.encourage po intake 5. Hypertension - identify and continue meds as appropriate 6. Atrial fibrillation, chronic. 7. Mild Protein calorie malnutrition 8. Esophageal Cancer - monitor oral intake to see if this plays a part in his dehydration and protein calorie malnutrition Dictated by KOSTA Euceda for Donald Stewart MD cc: KOSTA Euceda MD [facility]
[2017-04-11] MEDS: NORCO-10 PO PRN ×3 (00:18→19:58)
[2017-04-11 07:40] LABS: HEMOGLOBIN 13.2 g/dL (14.0-18.0); MCH 29.2 PG (27-31); MCV 88.5 FL (81-99); MPV 10.7 FL (7.4-10.4); RBC 4.52 XMIL (4.7-6.1)
[2017-04-11 07:52] LABS: AGAP 11; ALBUMIN 3.7 g/dL (3.5-5.0); ALKALINE PHOSPHATASE 60 U/L (32-122); BUN 23 mg/dL (8-22); CALCIUM 9.2 mg/dL (8.8-10.2); CHLORIDE 99 mmol/L (98-107); COSMO 280; GOT 17 U/L (10-34); GPT 9 U/L (10-44); SODIUM 137 mmol/L (136-145); TCO2 28 mmol/L (25-35); TOTAL PROTEIN 6.2 g/dL (6.3-8.3)
--- NOTE | 2017-04-11 09:43 | PROGRESS NOTE ---
DATE: 04/11/2017 SUBJECTIVE: Patient without any new complaints this morning. He does appear somewhat confused as each time I enter his room he asks if I am his doctor. He states that there is a neighbor that lives somewhere down the street that will take care of him if he goes home. No other new complaints noted. OBJECTIVE: Temperature 97, pulse 56, respiratory rate 18, BP 131/89, sat 98% on 2 L. General: Patient is awake, alert. He is in no respiratory distress. As noted above, he does appear somewhat confused. He knows he is in the hospital but frequently asks the same questions over. HEENT: Normocephalic, atraumatic. Neck supple. CV: Regular rate. Chest clear. Abdomen soft. LABORATORY DATA: CBC, CMP essentially normal. Glucose 148. Creatinine 0.9. ASSESSMENT: 1. Acute renal failure resolved. Serum creatinine was 1.4 on admit; currently 0.9. 2. Volume depletion, resolved. 3. Hypertension. 4. Chronic atrial fibrillation. 5. Delirium, likely chronic. Has not really improved with improving renal function or hydration. Urine culture is still pending currently. PLAN: The patient certainly will need rehab. Pastry Assistant is involved. We will saline lock. Continue to follow. Further orders as needed. cc: Donald Stewart MD
[2017-04-11] MEDS: NICODERM PATCH TD SCH (10:51)
[2017-04-11] MEDS: ATIVAN PO SCH ×2 (10:51→21:08)
[2017-04-11] MEDS: SEROQUEL PO SCH (21:08)
[2017-04-12] MEDS: NICODERM PATCH TD SCH ×2 (09:38→09:40)
[2017-04-12] MEDS: ATIVAN PO SCH ×2 (09:39→21:40)
[2017-04-12] MEDS: NORCO-10 PO PRN ×2 (09:39→21:39)
[2017-04-12] MEDS ORDERED: LEVAQUIN 500 MG/D5W 500 MG/100 ML IVPB IV SCH (12:00)
--- NOTE | 2017-04-12 14:07 | PROGRESS NOTE ---
DATE: 04/12/2017 SUBJECTIVE: The patient has no complaints. He is confused. He does not remember the staff. Thinks every time he sees somebody, this is a new person. OBJECTIVE: Vital Signs: Blood pressure is 139/76 with a heart rate of 88, respirations 20, temperature is 97.9 degrees oral with room air saturations of 99-100%. Cardiovascular: Regular rate and rhythm. S1, S2 appreciated. Pulmonary: Breath sounds are clear with no increased work of breathing noted. Gastrointestinal: Abdomen is soft, nontender, nondistended with bowel sounds in all 4 quadrants. Extremities: No clubbing, cyanosis, or edema. Pulses are palpable x4. LABORATORY: Blood sugars are ranging 100-148. ASSESSMENT: 1. Acute renal failure, resolved. Serum creatinine was 1.4 on admission. It is currently 0.9. 2. Volume depletion, resolved. 3. Staphylococcus hemolyticus urinary tract infection. 4. Hypertension. 5. Chronic atrial fibrillation. 6. Delirium. Likely chronic. Dictated by KOSTA Euceda for Donald Stewart MD cc: KOSTA Euceda MD
[2017-04-12] MEDS: SEROQUEL PO SCH (21:40)
[2017-04-13] MEDS: NORCO-10 PO PRN ×4 (03:50→22:10)
[2017-04-13 06:02] LABS: HEMATOCRIT 40.4 % (42.0-52.0); HEMOGLOBIN 13.2 g/dL (14.0-18.0); MCH 28.9 PG (27-31); MCHC 32.7 g/dL (33-37); MCV 88.4 FL (81-99); MPV 10.8 FL (7.4-10.4); RBC 4.57 XMIL (4.7-6.1)
[2017-04-13 06:22] LABS: AGAP 10; BUN 24 mg/dL (8-22); CALCIUM 9.5 mg/dL (8.8-10.2); CHLORIDE 103 mmol/L (98-107); COSMO 282; POTASSIUM 3.9 mmol/L (3.5-5.1); SODIUM 139 mmol/L (136-145); TCO2 26 mmol/L (25-35)
[2017-04-13] MEDS: LEVAQUIN PO SCH (09:10)
[2017-04-13] MEDS: ATIVAN PO SCH ×2 (09:10→20:38)
[2017-04-13] MEDS: NICODERM PATCH TD SCH (09:12)
--- NOTE | 2017-04-13 18:20 | PROGRESS NOTE ---
DATE: 04/13/2017 SUBJECTIVE: The patient is without any new complaints. He states that he wants to go home. OBJECTIVE: Vital signs reviewed. Temperature is 97.6, pulse 71, blood pressure is 114/81, saturation 100% on 2 L. General: The patient is awake and alert. He is lying in bed. He is in no respiratory distress. Neck: Supple. Cardiovascular: Regular rate. Chest: Clear. Abdomen: Soft. Extremities: He moves all extremities other than generalized weakness. DIAGNOSTIC DATA: CBC and CMP essentially normal. Urine culture growing Staphylococcus hemolyticus. ASSESSMENT: 1. Altered mental status, metabolic encephalopathy secondary to urinary tract infection, improved. 2. Urinary tract infection with Staphylococcus hemolyticus, started on Levaquin, improving. 3. Atrial fibrillation, stable. 4. Hypertension. 5. Volume depletion, resolved. PLAN: Hopefully the patient can be discharged home soon with Hospice. His insurance has declined rehab. cc: Donald Stewart MD
[2017-04-13] MEDS: SEROQUEL PO SCH (20:38)
[2017-04-14] MEDS: NORCO-10 PO PRN ×3 (02:04→20:53)
[2017-04-14] MEDS: LEVAQUIN PO SCH (08:44)
[2017-04-14] MEDS: ATIVAN PO SCH ×2 (08:44→20:53)
[2017-04-14] MEDS: NICODERM PATCH TD SCH (10:21)
--- NOTE | 2017-04-14 12:43 | PROGRESS NOTE ---
DATE: 04/14/2017 SUBJECTIVE: The patient has no complaints. He continues to ask to go home. OBJECTIVE: Vital Signs: Blood pressure is 129/55, heart rate of 69, respirations 18, temperature is 97.7 degrees with O2 saturation of 98%-100% on 2 L nasal cannula. Cardiovascular: Regular rate and rhythm. S1 and S2 appreciated. Pulmonary: Breath sounds are clear with no increased work of breathing noted. Gastrointestinal: Abdomen is soft, nontender, nondistended. Bowel sounds in all 4 quadrants. Extremities: No clubbing, cyanosis, or edema. Calves are nontender x4. Neurologic: He is awake is alert and he is cooperative. LABORATORY DATA: Blood glucose is ranging 98-132. ASSESSMENT: 1. Altered mental status and metabolic encephalopathy secondary to urinary tract infections, improved. He appears to be at baseline. 2. Urinary tract infection with Staphylococcus hemolyticus. Continue Levaquin. 3. Atrial fibrillation, stable. 4. Hypertension. 5. Volume depletion resolved. PLAN: Hopefully, he can be discharged home with Hospice as his insurance has declined rehab. Dictated by KOSTA Euceda for Donald Stewart MD cc: KOSTA Euceda MD
[2017-04-14] MEDS: SEROQUEL PO SCH (20:53)
[2017-04-15] MEDS: LEVAQUIN PO SCH (09:13)
[2017-04-15] MEDS: NICODERM PATCH TD SCH (09:13)
[2017-04-15] MEDS: ATIVAN PO SCH ×2 (09:13→20:27)
--- NOTE | 2017-04-15 13:13 | DISCHARGE SUMMARY ---
ADMISSION DATE: 04/09/2017 DISCHARGE DATE: 04/15/2017 DIAGNOSES: 1. Altered mental status. 2. Metabolic encephalopathy secondary to urinary tract infection, resolved. Patient is at baseline per family. 3. Urinary tract infection with Staphylococcus hemolyticus. We will continue Levaquin. 4. Atrial fibrillation, stable. 5. Hypertension. 6. Volume depletion, resolved. CONSULTANTS: None. BRIEF HOSPITAL COURSE: This is an 81-year-old man who presented to the emergency room with altered mental status. He was found to have a urinary tract infection for which she was treated with Levaquin. He was also found to have volume depletion. He was hydrated. He returned back to his baseline. Thankfully he is able to be discharged today. PHYSICAL EXAMINATION: Cardiovascular: Heart rate is irregularly irregular. S1 , S2 appreciated. Pulmonary: Breath sounds are clear. No increased work of breathing noted. Gastrointestinal: Abdomen is soft, nontender, nondistended with bowel sounds in all 4 quadrants. Extremities: No clubbing, cyanosis, or edema. Pulses are palpable x4. PROCEDURES: 04/09/2017 CT of the head revealed no visible acute process. No hemorrhage or mass effect. Microbiology: Staphylococcus hemolyticus UTI. DISCHARGE MEDICATIONS: Zocor 40 at bedtime, Carafate 1 g 4 times a day, Seroquel 25 mg at bedtime, omeprazole 40 mg daily, trazodone 225 at bedtime as needed, Ativan 1 mg p.o. b.i.d. p.r.n., Reglan 5 mg as directed, MiraLAX 17 g daily, Zofran ODT 4 mg q.6 h. p.r.n. [place] 10mg 1 po q6h prn pain The patient blood sugars have ranged in the 90 to looks like 130 range, primarily being in the one- teens to 120s. We did hold his glipizide and we will continue at present. Blood pressures have been in the 107s to 130s over 60s and 70s with no medications. Again we did hold his Imdur as well as his lisinopril. Levaquin will be given for 5 more days for his UTI. Warfarin discontinued due to patients frequent falls, and continued fall risk. DISCHARGE VITAL SIGNS: Blood pressure is 107/82 with a heart rate of 77, respirations are 18, temperature is 97.7 degrees oral with O2 saturation 97% to 100%. FOLLOWUP: He will be followed by [facility]. The patient's son Deondre will be moving in with the patient so he will not be alone. He will be discharged home in stable condition via EMS transport. TIME SPENT: This is a greater than 30 minute discharge. Dictated by KOSTA Euceda for Donald Stewart MD cc: KOSTA Euceda MD [facility]
[2017-04-15] MEDS: SEROQUEL PO SCH (20:27)
[2017-04-15] MEDS: NORCO-10 PO PRN (22:35)
[2017-04-16 05:43] VITALS: BP 130/72
[2017-04-16] MEDS: NICODERM PATCH TD SCH (08:42)
[2017-04-16] MEDS: LEVAQUIN PO SCH (08:42)
[2017-04-16] MEDS: ATIVAN PO SCH (08:42)
--- NOTE | 2017-04-16 14:43 | PROGRESS NOTE ---
DATE: 04/16/2017 SUBJECTIVE: No acute events overnight. No complaints. OBJECTIVE: Vital Signs: Temperature 97.5 degrees, pulse 64, respiratory rate 18, blood pressure 130/72, oxygen saturation 100% on 2 L of nasal cannula. HEENT: Head normocephalic. No trauma. PERRLA. Neck: Supple. No JVD. No masses. Central trachea. Chest: Clear to auscultation. Abdomen: Soft, nontender, nondistended. Extremities: No clubbing, no cyanosis. No edema. Neurological: He is awake, alert and cooperative. LABORATORY: Not done today. ASSESSMENT AND PLAN: 1. Altered mental status secondary to urinary tract infection improved. He appears to be at baseline. 2. Urinary tract infection with Staphylococcus hemolyticus. Continue with Levaquin. 3. Atrial fibrillation. Stable. 4. Hypertension stable. 5. Volume depletion, resolved. This patient has been discharged. He will go with hospice. Is my understanding that 1 of the sons will move with him. Open discharge the patient was in a stable medical condition. cc: Tavo Dominguez MD
== END 2017-04-16 09:00 | disposition hospice, home (50) ==
LOC: P.ED 17:32 → P.MEDSURG 17:32 → SUATTDRO 21:00
PROVIDERS: ATTEND Internal Medicine